=== PATIENT | female | born 1940 | race Caucasian/White ===

== ENCOUNTER → 2016-10-09 | Outpatient (CLI) | payer MEDICARE ==
[~2016-10-09] MED LIST: ADVA100A INH; LORA1TAB12 PO; LOSA100T PO; OMEP40CA2 PO; OXYC1TAB63 PO; VENTAER INH
--- NOTE | 2016-10-09 12:17 | RADRPT ---
EXAM DATE/TIME: 10/09/2016 11:51 [place] COMPARISON: No previous studies available for comparison. INDICATIONS : Evaluate for pneumonia, pneumothorax, and communicable disease. Preop for hysterectomy. MEDICAL HISTORY : Chronic obstructive pulmonary disease. Uteran cancer. SURGICAL HISTORY : None. 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 Mild atherosclerotic disease is noted with borderline left ventricular cardiomegaly compensated. CONCLUSION: No acute disease. Tyrone Bautista MD on October 09, 2016 at 12:15 Board Certified Radiologist. This report was verified electronically.
[2016-10-09 12:29] LABS: AUTOMATED NEUTROPHIL # 3.7 TH/MM3 (1.8-7.7); BASOPHIL % 0.7 % (0.0-2.0); EOSINOPHIL # 0.3 TH/MM3 (0-0.4); EOSINOPHIL % 4.5 % (0.0-4.0); HEMATOCRIT 39.7 % (35.0-46.0); HEMO FLAGS DIFF FINAL; LYMPH % 22.5 % (9.0-44.0); LYMPHOCYTE # 1.4 TH/MM3 (1.0-4.8); MEAN CELL VOLUME 85.2 FL (80.0-100.0); MEAN CORPUSCULAR HEMOGLOBIN 28.2 PG (27.0-34.0); MEAN CORPUSCULAR HGB CONC 33.1 % (32.0-36.0); MONO % 9.8 % (0.0-8.0); NEUT % 62.5 % (16.0-70.0); PLATELET COUNT 236 TH/MM3 (150-450); RED BLOOD COUNT 4.66 MIL/MM3 (4.00-5.30)
[2016-10-09 12:37] LABS: APTT (PATIENT) 26.1 SEC (24.3-30.1); INTERNATIONAL NORMALIZED RATIO 0.9 RATIO
[2016-10-09 12:59] LABS: ALKALINE PHOSPHATASE 150 U/L (45-117); ALT (GPT) 21 U/L (10-53); ANION GAP 7 MEQ/L (5-15); AST (GOT) 12 U/L (15-37); BICARBONATE 30.7 MEQ/L (21.0-32.0); BLOOD UREA NITROGEN 18 MG/DL (7-18); CHLORIDE 100 MEQ/L (98-107); GLOMERULAR FILTRATION RATE 44 ML/MIN (>89); GLUCOSE,FASTING 71 MG/DL (74-99); POTASSIUM 4.1 MEQ/L (3.5-5.1); SODIUM (NA) 138 MEQ/L (136-145); TOTAL BILIRUBIN ADULT 0.4 MG/DL (0.2-1.0)
--- NOTE | 2016-10-10 18:55 | EKG ---
Date Performed: 10/09/2016 Time Performed: 11:14:34 PTAGE: 76 years EKG: Sinus rhythm WITH SHORT VA INTERVAL NONSPECIFIC T-WAVE ABNORMALITY When compared to previous tracing, there are n ew nonspecific ST-T wave changes. BORDERLINE ECG PREVIOUS TRACING : 05/11/1998 12.43 DOCTOR: Lillie Asher Interpretating Date/Time 10/10/2016 18:52:52
== END ==
LOC: CPRE 10:25
PROVIDERS: ATTEND Obstetrics & Gynecology Gynecologic Oncology
DX: Z01.810 Encounter for preprocedural cardiovascular examination (principal); C54.1 Malignant neoplasm of endometrium; R94.31 Abnormal electrocardiogram [ECG] [EKG]; Z01.812 Encounter for preprocedural laboratory examination; Z01.818 Encounter for other preprocedural examination
CPT/HCPCS: 36415; 71020; 80053; 85025; 85610; 85730; 93005

== ENCOUNTER 2016-10-19 08:43 | Observation (INO) | payer MEDICARE ==
[~2016-10-19] VITALS: Ht 147.3 cm; Wt 64.8 kg
[~2016-10-19 08:43] MED LIST changes: -OXYC1TAB63 PO
[2016-10-19 09:05] VITALS: BP 147/86; PULSE 95; RESP 16; TEMP 98; O2SAT 97
[2016-10-19] MEDS ORDERED: ceFAZolin 1,000 MG/NS 100 ML IV SCH ×2 (09:45)
[2016-10-19] MEDS ORDERED: SODIUM CHLORID 0.9% 500 ML IV SCH (09:45)
[2016-10-19] MEDS ORDERED: METOPROLOL TARTRATE 25 MG TAB PO PRN (09:45)
[2016-10-19] MEDS ORDERED: INSULIN HUMAN REGULAR 1,000 UNITS/10 ML VIAL SQ PRN (09:45)
[2016-10-19] MEDS ORDERED: SODIUM CHLORIDE FLUSH PRN IVF (09:45)
[2016-10-19] MEDS ORDERED: HEPARIN SODIUM - SQ 10,000 UNITS/ML VIAL SQ SCH (09:45)
[2016-10-19] MEDS: LACTATED RINGER'S 1000 ML IV SCH ×3 (10:00→23:03)
[2016-10-19] MEDS ORDERED: methylPREDNISolone SOD SUCC 125 MG/2 ML VIAL ONE (11:29)
[2016-10-19] MEDS ORDERED: FAMOTIDINE 20 MG/2 ML VIAL ONE (11:29)
[2016-10-19] MEDS ORDERED: ONDANSETRON HCL 4 MG/2 ML VIAL IV PUSH ONE (12:00)
[2016-10-19] MEDS ORDERED: SODIUM CHLORID 0.9% 500 ML INJ 500 ML IV ONE (12:00)
[2016-10-19] MEDS ORDERED: LACTATED RINGER'S 1000 ML INJ 2,000 ML IV ONE (12:00)
[2016-10-19] MEDS ORDERED: PHENYLEPH/NS 1000 MCG/10 ML SYR IV ONE (12:00)
[2016-10-19] MEDS ORDERED: PROPOFOL 200 MG/20 ML AMP IV ONE (12:00)
[2016-10-19] MEDS ORDERED: DICLOFENAC SODIUM 37.5 MG/ML VIAL IV PUSH ONE (12:08)
[2016-10-19] MEDS ORDERED: SUGAMMADEX SODIUM 200 MG/2 ML VIAL IV PUSH ONE ×2 (12:08)
[2016-10-19] MEDS ORDERED: LIDOCAINE 1%/EPINEPHrine 1:100,000 SOLN 30 ML VIAL ONE (12:09)
[2016-10-19] MEDS ORDERED: MIDAZOLAM HCL 2 MG/2 ML VIAL ONE (12:21)
[2016-10-19] MEDS ORDERED: ceFAZolin INJ 1,000 MG VIAL IV ONE (14:30)
[2016-10-19] MEDS ORDERED: DO NOT ADM ANY ANTICOAGULANT DRUGS XX PRN (16:30)
[2016-10-19] MEDS ORDERED: *RESP: ALBUTEROL 2.5 MG/3 ML NEB (PRN) PERIprocedural Use ONLY NEB ONE (16:42)
[2016-10-19] MEDS ORDERED: diphenhydrAMINE HCL 25 MG CAP PO PRN (16:45)
[2016-10-19] MEDS ORDERED: LORazepam 1 MG TAB PO PRN (16:45)
[2016-10-19] MEDS ORDERED: SODIUM CHLORIDE 0.9% FLUSH 5 ML FLUSH FLUSH PRN (16:45)
[2016-10-19] MEDS ORDERED: ONDANSETRON HCL 4 MG/2 ML VIAL IVP PRN (16:45)
[2016-10-19] MEDS ORDERED: oxyCODONE/ACETAMINOPHEN 5 MG/325 MG TAB PO PRN ×2 (16:45)
[2016-10-19] MEDS ORDERED: fentaNYL CITRATE 250 MCG/5 ML AMP ONE (16:50)
[2016-10-19] MEDS ORDERED: D5-1/2 NS + KCL 20 MEQ INJ 1,000 ML IV SCH (17:00)
[2016-10-19 18:00] VITALS: BP 137/72; PULSE 85; RESP 16; TEMP 97.1; O2SAT 95
[2016-10-19 20:00] VITALS: BP 128/74; PULSE 93; RESP 18; TEMP 98.3; O2SAT 95
[2016-10-19] MEDS: KETOROLAC TROMETHAMINE 30 MG/ML (IVP) VIAL IVP SCH (20:05)
[2016-10-19] MEDS ORDERED: SODIUM CHLORIDE 0.9% FLUSH 5 ML FLUSH FLUSH SCH (21:00)
[2016-10-19] MEDS ORDERED: SODIUM CHLORIDE FLUSH BID IVF SCH (21:00)
[2016-10-19] MEDS ORDERED: SYMBICORT INH SCH (21:00)
[2016-10-19] MEDS ORDERED: RESP: ALBUTEROL 1.25 MG/3 ML NEB (SCH) NEB (22:00)
[2016-10-20] VITALS: BP 104/52; PULSE 92; RESP 20; TEMP 97.5; O2SAT 95
[2016-10-20] MEDS: KETOROLAC TROMETHAMINE 30 MG/ML (IVP) VIAL IVP SCH ×2 (00:12→06:00)
[2016-10-20 04:00] VITALS: BP 110/62; PULSE 90; RESP 20; TEMP 98.1; O2SAT 95
[2016-10-20 07:06] LABS: BICARBONATE 28.2 MEQ/L (21.0-32.0); POTASSIUM 4.2 MEQ/L (3.5-5.1)
[2016-10-20] MEDS ORDERED: OXYC1TAB63 PO (07:27)
[2016-10-20 07:38] LABS: AUTOMATED NEUTROPHIL # 9.3 TH/MM3 (1.8-7.7); BASOPHIL # 0.1 TH/MM3 (0-0.2); BASOPHIL % 0.5 % (0.0-2.0); EOSINOPHIL % 0.1 % (0.0-4.0); HEMO FLAGS DIFF FINAL; LYMPH % 8.3 % (9.0-44.0); LYMPHOCYTE # 0.9 TH/MM3 (1.0-4.8); MEAN CELL VOLUME 84.3 FL (80.0-100.0); MEAN CORPUSCULAR HGB CONC 33.3 % (32.0-36.0); NEUT % 84.1 % (16.0-70.0); PLATELET COUNT 208 TH/MM3 (150-450); RED BLOOD COUNT 4.27 MIL/MM3 (4.00-5.30); RED CELL DISTRIBUTION WIDTH 14.8 % (11.6-17.2); WHITE BLOOD COUNT 11.1 TH/MM3 (4.0-11.0)
[2016-10-20 08:00] VITALS: BP 124/60; PULSE 99; RESP 18; TEMP 97; O2SAT 90
[2016-10-20] MEDS ORDERED: PANTOPRAZOLE SOD 40 MG DELAYED RELEASE TAB PO SCH (09:00)
[2016-10-20] MEDS ORDERED: LOSARTAN 50 MG TAB PO SCH (09:00)
--- NOTE | 2016-10-24 21:48 | MD ---
cc: WILL DANIELLE,NORI JENSEN,MELY Franco MD ADMISSION DATE: 10/19/2016 DISCHARGE DATE: 10/20/2016 PROCEDURE 10/19/2016, robotic-assisted laparoscopic hysterectomy, bilateral salpingo-oophorectomy, bilateral pelvic lymphadenectomy. DIAGNOSIS Endometrial cancer. HOSPITAL COURSE She did well during the first 24 hours postoperatively. LABORATORY DATA Potassium 4.2, BUN and creatinine are 11 and 1.12 consistent with baseline, CBCs pending. Intake and output 2920/650 plus. PHYSICAL EXAMINATION Afebrile, pulse from 79-90, respirations 14-20, blood pressure 104-140 over 52-77, O2 saturations greater than equal to 95%. Alert, oriented x3 in no acute distress, tolerating oral intake. Lungs: Clear, mild basilar rales. Cardiovascular: Regular rate and rhythm. Abdomen: Soft. Incisions clean and dry. 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 Extremities: Nontender. ASSESSMENT Postoperative day #1, doing well in her early postop recovery. The preliminary pathology, the extent of the tumor within the uterus and the rationale for lymph node dissection are again discussed and reviewed, activities, restrictions are summarized. She is to resume her prior medications. Questions were answered. She expressed good understanding. PLAN Anticipate she will meet criteria for discharge to home. Prescription provided for Percocet for pain. She is to contact our office to schedule a follow up appointment in 2 weeks or to contact our office should she have any questions or problems between now and the time of scheduled followup. MD CORDELL Plunkett/KEVIN /7:31 AM /9:42 PM
--- NOTE | 2016-10-29 19:34 | MP ---
cc: NORI SILVEIRA KELLY L. MD STAVOY, THOMAS DATE OF SURGERY: 10/19/2016. PREOPERATIVE DIAGNOSIS: Grade 1 endometrial adenocarcinoma. POSTOPERATIVE DIAGNOSIS: Grade 1 endometrial adenocarcinoma. OPERATIVE PROCEDURE PERFORMED: Robotic-assisted laparoscopic hysterectomy, bilateral salpingo-oophorectomy, bilateral pelvic lymphadenectomy. SURGEON: Marilou Flores MD. 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 ANESTHESIA: General endotracheal anesthesia. ESTIMATED BLOOD LOSS: 200 mL. IV FLUIDS: 2200 mL URINE OUTPUT: 300 mL. HISTORY: 76-year-old female postmenopausal bleeding, thickened endometrial stripe on ultrasound. Biopsy showed grade 1 endometrial adenocarcinoma. She was counseled regarding these findings and was in favor of moving forward with surgical management and presents now for that endeavor. FINDINGS: The uterine cavity sounded to 8 cm. The tubes and ovaries grossly appeared normal. There were no appreciably enlarged pelvic or para-aortic lymph nodes. The liver/diaphragm edges were smooth. Omentum and large and small bowel and peritoneal surfaces were all free of the peritoneal implants. The uterus, once removed, was evaluated by the pathologist; it showed a large tumor estimated to be approximately 5 cm and there was invasion into the myometrium greater than 50%. DESCRIPTION OF THE PROCEDURE IN DETAIL: The patient was taken to the operating room and placed in dorsal lithotomy position after general endotracheal anesthesia was administered. A time-out was undertaken. The patient was identified by sight recognition and hospital ID bracelet and the proposed procedure was reviewed and confirmed. She was carefully positioned in padded Eusebio stirrups. Her arms were padded and secured to the sides. She was further secured to the operating table with egg crate padding tape in a cross chest over the shoulder fashion. All sites were noted be properly aligned with no malalignments or pressure points. She was prepped in sterile fashion and draped below the waist, placed in high lithotomy position, cervix grasped, uterine cavity sounded, cervix dilated and standard V-Care manipulator inserted and secured in the usual fashion. Mitchell catheter placed in the bladder. She was returned to low lithotomy position. Change of sterile gloves was undertaken and we completed draping in anticipation of laparoscopy. After confirming that an OG tube was in the stomach on suction with manual elevation of the abdominal wall and direct laparoscopic visualization, a 5 mm cannula was introduced into the left upper abdomen. Carbon dioxide gas was insufflated. A 12 mm cannula was placed in midline above the umbilicus, an 8 mm cannula placed in the right upper abdomen, left lateral abdomen. The original 5 exchanged for an 8-mm cannula. Peritoneal washings were obtained for cytology. The anatomy was surveyed with the findings as described above. Three Ray-Milton sponges were placed in the abdomen and she was placed in steep Trendelenburg position and the small bowel was folded back on its mesenteric root. The robotic system was brought into the operative field and attached in the usual fashion. Monopolar scissors, fenestrated bipolar forceps and Prograsp manipulators were placed in arms #1, #2 and #3, respectively. I took my place at the surgeon's console. Right round ligament isolated, cauterized and transected. The anterior and posterior leafs of the broad ligament were opened. The right ureter was identified. The right infundibulopelvic ligament was isolated. The infundibulopelvic ligament was cauterized and transected. Posterior peritoneum was opened along the right side of uterus and cervix. Right vesicouterine peritoneum dissected off the lower uterine segment and cervix. Right uterine vessels were skeletonized, cauterized and transected as were the cardinal, paracervical and uterosacral ligaments. Attention was directed to the left side. The left round ligament was isolated, cauterized and transected. The anterior and posterior leafs of the broad ligament were opened. The left ureter was identified. The left infundibulopelvic ligament was isolated and the intervening peritoneum was opened. The infundibulopelvic ligament was cauterized and transected. Posterior peritoneum opened and left vesicouterine peritoneum was dissected off the lower uterine segment and cervix. Uterine vessels were skeletonized, cauterized and transected as were the cardinal, paracervical and uterosacral ligaments. Circumferential colpotomy was performed. The specimen was removed transvaginally, which included uterus, cervix, tubes and ovaries and a Pneumooccluder balloon was placed in the vagina to maintain pneumoperitoneum. Instruments #1 and #3 were exchanged for needle drivers as a 30 Vicryl suture was introduced. The vaginal cuff was closed starting at the left corner full-thickness closure incorporating the edge of the uterosacral ligament, posterior peritoneum tied via instrument tie and the suture was held on counter traction as a running full-thickness continuous closure was carried across the vaginal cuff to the contralateral corner where it was similarly secured, fixed, tied. The needle was cut and removed. Pathology came back showing a large tumor deeply invasive and as per our preoperative agreement, if the risk factors were significant, she would be willing to consider lymph node biopsies from the pelvis, and so attention was directed toward the right pelvic lymph nodes. Paravesical, pararectal and obturator spaces were developed. Lymphatic tissue was removed starting at the bifurcation of the iliac vessels and continuing laterally over the psoas muscle distally to the circumflex iliac vein. The medial border of dissection was the superior vesical artery and the base of the dissection was the obturator nerve. Lymphatic tissue from the space was removed using bipolar cautery and sharp dissection and the en bloc specimen was placed in the right pelvis for later retrieval. Similar steps were carried out on the left side where the paravesical, pararectal and obturator spaces were developed. Lymphatic tissue was removed following the borders as described on both sides. The genitofemoral nerves were isolated and spared. Dissection was carried out and the en bloc block specimen was placed in the left pelvis for later retrieval. The integrity of the bladder was confirmed by filling the bladder with saline dyed with methylene blue. There were no areas of thinning, no defects in the bladder, no extravasation of dye. There was a good margin between the bladder edge and the vaginal cuff suture line and the bladder was drained. Inspection of the para-aortic region revealed no enlarged periaortic lymph nodes and given the normal-appearing pelvic lymphatic tissue, it was felt that further dissection may be associated with morbidity that it would exceed benefit and it was felt that in keeping with our discussion preoperatively it was felt that all reasonable surgical objectives had been completed. Robotic instruments were removed. The robotic system was disengaged from the operative field. I reentered the bedside under sterile condition. Laparoscopically each of the three Ray-Milton sponges that had been placed in the peritoneal cavity were removed individually through the 12-mm cannula. Each were inspected and noted to be removed in their entirety. There were no remaining foreign objects in the peritoneal cavity. The pelvis and abdomen then were thoroughly irrigated. All sites were hemostatic. The 12 mm fascial defect was closed with 0 Vicryl sutures interrupted using a needle pass fascia closure apparatus which rendered the fascia completely airtight and hemostatic. The remaining cannulas were withdrawn. Carbon dioxide gas was removed from the peritoneal cavity. 3-0 Vicryl subcutaneous, 3-0 Vicryl subcuticular and Steri-Strips were used to close these incisions. She was returned to the dorsal lithotomy position. Pelvic exam confirmed the vaginal cuff was well supported and hemostatic. No vaginal lacerations. No remaining foreign objects in the vagina. Preliminary and final counts were correct. She was returned to dorsal supine position and was pending reversal of anesthesia when I left the operating room to precede her to the post-anesthesia care unit and to speak to family members waiting in the surgical waiting area. MD CORDELL Plunkett/[place] /7:16 AM /7:18 PM
== END 2016-10-20 09:07 | disposition home or self-care (01) ==
LOC: HSDC 08:43 → HSDI 16:45 → HOCB 18:03
PROVIDERS: ADMIT Obstetrics & Gynecology Gynecologic Oncology; ATTEND Obstetrics & Gynecology Gynecologic Oncology
DX: C54.1 Malignant neoplasm of endometrium (principal); N83.8 Other noninflammatory disorders of ovary, fallopian tube and broad ligament; I10 Essential (primary) hypertension; J44.9 Chronic obstructive pulmonary disease, unspecified; J45.909 Unspecified asthma, uncomplicated
CPT/HCPCS: 00840; 38571; 58552; 80048; 85025; 86850; 86900; 86901; 88112; 88307; 88309; 88331; 94640; 94664; G0378; J0690; J1130; J1644; J1885; J2250; J2370; J2405; J2930; J3010; J3480; J7040; J7120; J7613; 88305